=== PATIENT | female | born 1970 | race African-American/Black ===

== ENCOUNTER 2021-08-29 13:03 | Emergency (ER) | payer MEDICAID ==
[~2021-08-29] VITALS: Ht 172.7 cm; Wt 100.0 kg
[2021-08-29 13:30] VITALS: BP 160/79
[2021-08-29] MEDS ORDERED: IOHEXOL-350 100 ML BOTTLE ONE (13:50)
[2021-08-29] MEDS ORDERED: HALOPERIDOL LACTATE 5MG/ML VIAL IM ONE (14:30)
== END 2021-08-29 14:30 | disposition left against medical advice (07) ==
LOC: ER 13:10
DX: R41.82 Altered mental status, unspecified (principal); R47.1 Dysarthria and anarthria; F10.229 Alcohol dependence with intoxication, unspecified; Y90.0 Blood alcohol level of less than 20 mg/100 ml
CPT/HCPCS: 70450; 93005; 99284; J1630; Q9967; Z7610